=== PATIENT | male | born 1950 | race Caucasian/White ===

== ENCOUNTER 2016-11-04 17:06 | Inpatient (IN) | payer MEDICARE ==
--- NOTE | 2016-11-04 17:36 | Emergency Department Record ---
History of Present Illness - General Chief complaint: Extremity Problem Stated complaint: CELLULITIS ON RT LEG Time Seen by Provider: 11/04/16 17:24 Source: Patient Mode of Arrival: Ambulatory Limitations: No limitations - History of Present Illness Initial comments: The patient is here due to a one day hx of R lower leg pain and a low grade temp of 100.5. The patient has a hx of R leg cellulitis and now feels like he has it again. He denies any trauma, injury, CP, SOB, or cough. The patient does have a hx of a kidney transplant and is on Prograff along with other anti- rejection medicines. MD Complaint: Extremity pain Onset/Timin -: Days(s) Location: Right, Lower Leg History of Same: Yes Consistency: Constant Improves with: Nothing Worsens with: Nothing Associated Symptoms: Denies other symptoms - Related Data Home Medications Medication Instructions Recorded Confirmed Last Taken Aspirin [Ecotrin] 81 mg PO BID 05/24/15 11/04/16 07/19/16 Cholecalciferol (Vitamin D3) 50,000 unit PO Q30D 05/24/15 11/04/16 07/19/16 [Vitamin D3] Multivitamin [Multi-Vitamin Daily] 1 each PO DAILY 05/24/15 11/04/16 07/19/16 Mycophenolate Mofetil 1,000 mg PO BID 05/24/15 11/04/16 07/19/16 Prednisolone [Millipred] 5 mg PO QPM 05/24/15 11/04/16 07/19/16 Tacrolimus [Prograf] 2 mg PO DAILY 05/24/15 11/04/16 07/19/16 Vitamin B Complex [Stress B] 1 each PO DAILY 05/24/15 11/04/16 07/19/16 Vitamin E (Dl,Tocopheryl Acet) 400 unit PO DAILY 05/24/15 11/04/16 07/19/16 [Vitamin E] Enalapril Maleate [Vasotec] 2.5 mg PO DAILY 12/14/15 11/04/16 07/19/16 Tacrolimus [Prograf] 0.5 mg PO QHS 12/14/15 11/04/16 07/19/16 Tacrolimus [Prograf] 1 mg PO QHS 12/14/15 11/04/16 07/19/16 Previous Rx's Medication Instructions Recorded Sulfamethoxazole/Trimethoprim 1 each PO BID #20 tab 12/16/15 [Bactrim] Allergies Allergy/AdvReac Type Severity Reaction Status Date / Time Penicillins [PENICILLINS] Allergy Unknown RASH Verified 07/19/16 15:01 iodine Allergy NAUSEA AND Verified 07/19/16 15:01 VOMITING venom-honey bee Allergy ANAPHYLAXIS Verified 07/19/16 15:01 [bee venom (honey bee)] Travel Screening - Travel/Exposure Within Last 30 Days Have you traveled within the last 30 days?: No Review of Systems Constitutional: Reports: Chills, Fever, Malaise Eyes: Denies: Eye discharge ENT: Denies: Congestion Respiratory: Denies: Cough, Dyspnea Cardiovascular: Denies: Arrhythmia, Chest pain Past Medical History - SOCIAL HISTORY Smoking Status: Never smoker Alcohol Use: None Drug Use: None - RESPIRATORY Hx Respiratory Disorders: Yes Comment:: sarcoidosis - CARDIOVASCULAR Hx Cardio Disorders: Yes Hx Hypertension: Yes - NEURO Hx Neuro Disorders: Yes Hx Neuropathy: Yes (through dialysis) - GI Hx GI Disorders: No Comment:: gluten and lactose free diet - Hx Genitourinary Disorders: Yes Hx Renal Disease: Yes - ENDOCRINE Hx Endocrine Disorders: No - MUSCULOSKELETAL Hx Musculoskeletal Disorders: Yes Hx Gout: Yes - PSYCH Hx Psych Problems: No - HEMATOLOGY/ONCOLOGY Hx Hematology/Oncology Disorders: No Family Medical History Any Significant Family History?: Yes Hx Dementia: Father, Mother, Grandparents *Dementia Comment: prostate, colon Physical Exam - General General Appearance: Alert, Oriented x3, Cooperative, No acute distress - Head Head exam: Atraumatic, Normocephalic, Normal inspection - Eye Eye exam: Normal appearance, PERRL - Neck Neck exam: Normal inspection, Full ROM. negative: Tenderness - Respiratory Respiratory exam: Normal lung sounds bilaterally. negative: Respiratory distress - Cardiovascular Cardiovascular Exam: Regular rate, Normal rhythm, Normal heart sounds - GI/Abdominal GI/Abdominal exam: Soft, Normal bowel sounds. negative: Tenderness - Extremities Extremities exam: Tenderness (There is warmth and mild erythema to the anterior R lower leg.). negative: Normal inspection - Neurological Neurological exam: Alert. negative: Motor sensory deficit Course Vital Signs 11/04/16 17:27 Temperature 98.3 F Pulse Rate 111 H Respiratory 16 Rate Blood Pressure 118/54 Pulse Ox 97 - Reevaluation(s) Reevaluation #1: The patient is doing well. He denies any new issues. I did discuss the issues with the patient and did recommend hospital admission and the patient agrees. I then did discuss the issues with Dr. Ponce and he accepts the admission. 11/04/16 18:33 Medical Decision Making - Data Complexity MDM Data: Labs Ordered and/or Reviewed - Lab Data Result diagrams: 11/04/16 18:00 11/04/16 18:00 Disposition Disposition: Admit Clinical Impression: Cellulitis of right lower extremity Disposition: Still a Patient at [facility] Decision to Admit: Admit from ER Decision to Admit Date: 11/04/16 Decision to Admit Time: 18:38 Accepting Physician: Rosario Time Discussed w/Accepting Physician: 18:38 Condition: (2) Stable Forms: Patient Portal Access Time of Disposition: 18:38
[2016-11-04] MEDS ORDERED: ACETAMINOPHEN 325 MG TAB PO ONE (17:44)
[2016-11-04 18:15] LABS: HEMATOCRIT 39.3 % (42.0-52.0); HEMOGLOBIN 12.1 gm/dl (14.0-18.0); MEAN CELL VOLUME 90.6 fl (81-97); MEAN CORPUSCULAR HGB CONC 30.8 g/dl (32-36); PLATELET COUNT 227 K/uL (130-400); RED BLOOD COUNT 4.34 M/uL (4.40-5.70); RED CELL DISTRIBUTION WIDTH 14.6 % (11.5-14.5); WHITE BLOOD COUNT W/O DIFF 15.1 K/uL (4.2-12.2)
[2016-11-04] MEDS ORDERED: CEFTRIAXONE SODIUM 1 GM in 0.9 % SODIUM CHLORIDE 100ML 100 ML IVPB ONE (18:16)
[2016-11-04 18:18] LABS: MEAN CORPUSCULAR HEMOGLOBIN 27.8 pg (27-33)
[2016-11-04 18:24] LABS: PLATELET ESTIMATE NORMAL (NORMAL)
[2016-11-04 18:36] LABS: ANION GAP 7.6 (7-16); BLOOD UREA NITROGEN 15 mg/dL (9-20); CARBON DIOXIDE 25.4 mmol/L (22-30); CREATININE 1.1 mg/dL (0.66-1.25); EST GLOMERULAR FILTRATION RATE > 60 ml/min; GLUCOSE,RANDOM 107 mg/dL (70-110)
[2016-11-04] MEDS ORDERED: CEFTRIAXONE SODIUM 1 GM in 0.9 % SODIUM CHLORIDE 100ML 100 ML IVPB SCH (19:39)
[2016-11-04] MEDS ORDERED: FUROSEMIDE 20 MG TABLET PO SCH (19:39)
[2016-11-04] MEDS: TMP/SMZ 160MG/800MG TAB PO SCH (21:19)
[2016-11-04] MEDS ORDERED: PATIENT OWN MED: PO SCH ×3 (22:00)
[2016-11-04] MEDS ORDERED: ASPIRIN 81 MG TABEC PO SCH (22:00)
[2016-11-05] MEDS ORDERED: ACETAMINOPHEN 325 MG TAB PO PRN (08:08)
[2016-11-05] MEDS: CEFTRIAXONE SODIUM 1 GM in 0.9 % SODIUM CHLORIDE 100ML 100 ML IVPB SCH ×2 (09:07→21:16)
[2016-11-05] MEDS: PATIENT OWN MED: ASPIRIN 81 MG PO SCH ×2 (09:18→21:13)
[2016-11-05] MEDS: MYCOPHENOLATE 500 MG PO SCH ×2 (09:19→21:17)
[2016-11-05] MEDS: ENALAPRIL 5 MG PO SCH ×2 (09:19→21:17)
[2016-11-05] MEDS: TACROLIMUS 1 MG PO SCH (09:19)
[2016-11-05] MEDS: TMP/SMZ 160MG/800MG TAB PO SCH ×2 (09:20→21:12)
[2016-11-05] MEDS: VITAMIN B COMPLEX PO SCH ×2 (09:21)
[2016-11-05] MEDS: PATIENT OWN MED: PREDNISONE 5 MG PO SCH (09:21)
[2016-11-05] MEDS: PATIENT OWN MED: MULTIVITAMIN PO SCH (09:21)
[2016-11-05] MEDS: FUROSEMIDE 20 MG TABLET PO SCH (09:30)
--- NOTE | 2016-11-05 12:31 | History and Physical Report ---
DATE OF ADMISSION: 11/04/2016 CHIEF COMPLAINT AND HISTORY OF CHIEF COMPLAINT: Redness, swelling, and pain of the right lower leg. HISTORY OF PRESENT ILLNESS: This 66-year-old male states that today the leg became red, swollen and painful. He developed a fever. He came into the emergency department for evaluations; evaluated by Dr. Joseph, admitted to the hospital with cellulitis of the right leg. He has a chronic foot ulcer on the right foot, seeing Dr. Watters weekly for that. The patient has a history of a renal transplant. We will start him on IV Rocephin and oral Bactrim. His radio sportscaster in [place] is Dr. Mcclure and he sees [facility] nephrology people for his transplant. I am his primary doctor. PAST MEDICAL HISTORY: Hypertension. He has chronic nephritis, benign prostatic hyperplasia, and renal transplant in 2011. He does not have diabetes. PAST SURGICAL HISTORY: Kidney transplant 5 years ago 2011. He has multiple right foot surgeries because of an ulcer that is not healing. He was on dialysis in the past. SOCIAL HISTORY: No alcohol. He never smoked. CURRENT MEDICATIONS: 1. CellCept 1000 mg b.i.d. 2. Vasotec 2.5 b.i.d. 3. Vitamin D 50,000 units every 2 weeks. 4. Prograf 2 mg in the morning, 1 mg at night. 5. Vitamin E 400 units daily. 6. B complex 1 daily. 7. Millipred 5 mg at h.s. 8. Mofetil 1000 mg b.i.d. 9. Multivitamins daily, 1 a day. 10. Aspirin 81 mg b.i.d. ALLERGIES: PENICILLIN, IODINE, AND BEES. SOCIAL HISTORY: No alcohol or cigarette use. FAMILY HISTORY: No significant family medical history. REVIEW OF SYSTEMS: HEENT: No upper respiratory infection symptoms, cough, cold, or congestion. CARDIOVASCULAR: No chest pain, palpitation, arrhythmias. RESPIRATORY: No cough, cold, or congestion. GASTROINTESTINAL: No nausea, vomiting, diarrhea, black stools, or bloody stools. GENITOURINARY: No dysuria, hematuria, frequency, or burning on urination. MUSCULOSKELETAL: No joint or bone abnormalities. NEUROLOGIC: No CVA, paralysis, or paresthesias. ENDOCRINE: No diabetes or thyroid disease. INTEGUMENT: No rash, ulcerative change, or yellow skin. See chief complaint. Skin is red, the right lower leg swollen and painful to touch, cellulitis-type rash. PHYSICAL EXAMINATION: GENERAL: Height is 6 feet. His weight is documented at 300 pounds. VITAL SIGNS: Temperature is 98.7, pulse is 90, blood pressure is 116/61, respiratory rate is 20. HEENT: Pupils are equal, round, and reactive to light and accomodation. Extraocular muscles intact. Throat is clear. Nose is clear. Tympanic membranes are gaytan. NECK: Supple, no JVD, distention, hepatojugular reflux, no carotid bruits, thyroid is . CARDIOVASCULAR: Regular rate and rhythm without murmurs, clicks, rubs, or gallops. RESPIRATORY: Clear to auscultation and percussion. ABDOMEN: Soft, nontender, no hepatosplenomegaly, no mass, no tenderness. Bowel sounds are active, no bruits. EXTREMITIES: See chief complaint. He has redness of the right lower leg, swelling, and pain. There is an ulcer on the right foot, no cyanosis, no clubbing, full range of motion. BREASTS: Normal male breasts. RECTAL: Deferred. GENITALIA: Deferred. NEUROLOGIC: Cranial nerves II through XII intact. No gross defect, sensation normal, strength normal. Deep tendon reflexes are equal bilaterally. Babinski negative. MENTAL STATUS: Alert and oriented x3. IMPRESSION: 1. Cellulitis of the right lowr leg. 2. Chronic ulcer of the right foot status post kidney transplants 2011 [facility]. 3. Status post hypertension, status post gout. PLAN: 1. IV Rocephin q.12h. 2. Bactrim double strength b.i.d. 3. Further care as needed. 4. We will discuss the case with the [facility] at [facility] to make sure if we should be stopping his rejection meds or not at this time. DO FELA Spencer
[2016-11-05] MEDS ORDERED: TACROLIMUS 0.5 MG PO SCH (21:00)
[2016-11-05] MEDS ORDERED: TACROLIMUS 1 MG PO SCH (21:00)
[2016-11-06] MEDS: CEFTRIAXONE SODIUM 1 GM in 0.9 % SODIUM CHLORIDE 100ML 100 ML IVPB SCH (08:28)
[2016-11-06] MEDS: PATIENT OWN MED: ASPIRIN 81 MG PO SCH (09:05)
[2016-11-06] MEDS: ENALAPRIL 5 MG PO SCH (09:05)
[2016-11-06] MEDS: MYCOPHENOLATE 500 MG PO SCH (09:05)
[2016-11-06] MEDS: TACROLIMUS 1 MG PO SCH (09:05)
[2016-11-06] MEDS: TMP/SMZ 160MG/800MG TAB PO SCH (09:07)
[2016-11-06] MEDS: FUROSEMIDE 20 MG TABLET PO SCH (09:07)
[2016-11-06] MEDS: VITAMIN B COMPLEX PO SCH ×2 (11:06→11:07)
[2016-11-06] MEDS: PATIENT OWN MED: PREDNISONE 5 MG PO SCH (11:06)
[2016-11-06] MEDS: PATIENT OWN MED: MULTIVITAMIN PO SCH (11:06)
--- NOTE | 2016-11-06 13:12 | Discharge Note ---
VTE H&P Assessment - Risk for VTE Risk for VTE: Yes Risk Level: Moderate Risk Assessment Date: 11/05/16 Risk Assessment Time: 08:00 VTE Orders Placed or Will Be Placed: Yes Discharge Medications - Discharge Medications Home Medications: Ambulatory Orders Aspirin [Ecotrin] 81 mg PO BID 05/24/15 [Last Taken 07/19/16] Cholecalciferol (Vitamin D3) [Vitamin D3] 50,000 unit PO Q15D 05/24/15 [Last Taken 07/19/16] Multivitamin [Multi-Vitamin Daily] 1 each PO DAILY 05/24/15 [Last Taken 07/19/16 ] Prednisolone [Millipred] 5 mg PO QPM 05/24/15 [Last Taken 07/19/16] Tacrolimus [Prograf] 2 mg PO DAILY 05/24/15 [Last Taken 07/19/16] Vitamin B Complex [Stress B] 1 each PO DAILY 05/24/15 [Last Taken 07/19/16] Vitamin E (Dl,Tocopheryl Acet) [Vitamin E] 400 unit PO DAILY 05/24/15 [Last Taken 07/19/16] Enalapril Maleate [Vasotec] 2.5 mg PO BID 12/14/15 [Last Taken 07/19/16] Tacrolimus [Prograf] 1.5 mg PO QHS 12/14/15 [Last Taken 07/19/16] Mycophenolate Mofetil [Cellcept] 1,000 mg PO BID 11/04/16 [Last Taken Unknown] Cephalexin [Keflex] 500 mg PO QID #40 cap 11/06/16 [Last Taken Unknown] Sulfamethoxazole/Trimethoprim [Bactrim] 1 each PO BID #20 tab 11/06/16 [Last Taken Unknown] Discharge Note - Date Date of Discharge Note: 11/06/16 Disposition: Home, Self-Care Condition: (2) Stable Instructions: Cellulitis (DC) Additional Instructions: follow up with dr. Ponce on thursday Prescriptions: Sulfamethoxazole/Trimethoprim [Bactrim] 1 each PO BID #20 tab Cephalexin [Keflex] 500 mg PO QID #40 cap Referrals: Aron Ponce D.O. [Primary Care Provider] - Forms: Patient Portal Access
== END 2016-11-06 14:35 | disposition home or self-care (01) | DRG 603 ==
LOC: ER 17:06 → MEDSURG 19:13
PROVIDERS: ADMIT Emergency Medicine; ATTEND Emergency Medicine
DX: L03.115 Cellulitis of right lower limb (principal); Z94.0 Kidney transplant status; N03.9 Chronic nephritic syndrome with unspecified morphologic changes; I10 Essential (primary) hypertension; N40.0 Benign prostatic hyperplasia without lower urinary tract symptoms; L97.519 Non-pressure chronic ulcer of other part of right foot with unspecified severity
CPT/HCPCS: 80048; 85027; 86140; 96374; 99223; 99233; 99239; 99285

== ENCOUNTER 2017-06-05 21:41 | Emergency (ER) | payer MEDICARE ==
[2017-06-05] MEDS ORDERED: 0.9 % SODIUM CHLORIDE 1000ML 1,000 ML IV ONE (21:50)
--- NOTE | 2017-06-05 21:56 | Emergency Department Record ---
History of Present Illness - General Chief complaint: Male Urogenital Problem Stated complaint: UTI Time Seen by Provider: 06/05/17 21:43 Source: Patient, Family Mode of Arrival: Ambulatory Limitations: No limitations - History of Present Illness Initial comments: 67 yo male presents with urinary frequency and fever. His urinary symptoms started about 3 days ago and the fever yesterday. He reports that he had a renal transplant 5 years ago. Recently he had fevers of unknown cause. It was discovered that he had a stone in his transplanted kidney. He was treated at [facility] where his transplant occurred. He was treated with antibiotics and a ureteral stent as well and a nephrostomy tube. He reports the stone was treated with lithotripsy on multiple occasions. The stent was removed about 10 days ago. He finished Cipro a few days ago. His TMax was 101 today. He reports that the last stone was painless as it was in the transplanted kidney. The patient took Tylenol prior to arrival. He had chronic unchanged right foot drainage from a long standing foot ulcer that is unchanged. No cough. PCP is Dr Ponce in [place] MD Complaint: Dysuria, Other (Fevers) -: Hour(s) Severity: Mild Consistency: Constant Improves with: None Worsens with: None Other Reports: Other (tired, fatique) - Related Data Home Medications Medication Instructions Recorded Confirmed Last Taken Tamsulosin HCl [Flomax] 0.4 mg PO DAILY 06/05/17 06/05/17 Unknown Allergies Allergy/AdvReac Type Severity Reaction Status Date / Time Penicillins [PENICILLINS] Allergy Unknown RASH Verified 07/19/16 15:01 Iodinated Contrast- Oral and Allergy PT UNSURE Verified 06/05/17 21:54 IV Dye OF REACTION iodine Allergy NAUSEA AND Verified 07/19/16 15:01 VOMITING venom-honey bee Allergy ANAPHYLAXIS Verified 07/19/16 15:01 [bee venom (honey bee)] Review of Systems Constitutional: Reports: Chills, Fever, Malaise, Weakness Eyes: Denies: Eye discharge, Eye pain, Photophobia, Vision change ENT: Denies: Congestion, Throat pain Respiratory: Denies: Cough, Dyspnea, Hemoptysis, Stridor, Wheezes Cardiovascular: Denies: Chest pain, Palpitations, Syncope Endocrine: Reports: Fatigue. Denies: Polydipsia, Polyuria Gastrointestinal: Denies: Abdominal pain, Constipation, Diarrhea, Hematemesis, Hematochezia, Nausea, Vomiting Genitourinary: Reports: Dysuria, Frequency, Urgency. Denies: Hematuria Musculoskeletal: Denies: Arthralgia, Back pain, Joint swelling, Myalgia Skin: Denies: Bruising, Change in color, Rash Neurological: Denies: Confusion, Headache, Numbness, Tingling, Tremors, Vertigo , Weakness Psychiatric: Denies: Anxiety Hematological/Lymphatic: Denies: Blood Clots, Easy bleeding, Easy bruising, Swollen glands Past Medical History - SOCIAL HISTORY Smoking Status: Never smoker - RESPIRATORY Hx Respiratory Disorders: Yes Comment:: sarcoidosis - CARDIOVASCULAR Hx Cardio Disorders: Yes Hx Hypertension: Yes - NEURO Comment:: Charcot Shari Tooth - GI Hx GI Disorders: No Comment:: gluten and lactose free diet - Comment:: kidney transplant 09/2011 - ENDOCRINE Hx Endocrine Disorders: No - MUSCULOSKELETAL Hx Musculoskeletal Disorders: Yes - PSYCH Hx Psych Problems: No - HEMATOLOGY/ONCOLOGY Hx Hematology/Oncology Disorders: No Family Medical History Hx Dementia: Father, Mother, Grandparents *Dementia Comment: prostate, colon Physical Exam - General General Appearance: Alert, Oriented x3, Cooperative, No acute distress Limitations: No limitations - Head Head exam: Atraumatic, Normocephalic, Normal inspection - Eye Eye exam: Normal appearance, PERRL. negative: Conjunctival injection, Scleral icterus - ENT ENT exam: Normal exam, Mucous membranes moist Ear exam: Normal external inspection Nasal Exam: Normal inspection Mouth exam: Normal external inspection - Neck Neck exam: Normal inspection, Full ROM. negative: Tenderness - Respiratory Respiratory exam: Normal lung sounds bilaterally. negative: Decreased breath sounds, Respiratory distress, Rhonchi, Stridor, Wheezes - Cardiovascular Cardiovascular Exam: Regular rate, Normal rhythm, Normal heart sounds Peripheral Pulses: 2+: Radial (R), Radial (L) - GI/Abdominal GI/Abdominal exam: Soft. negative: Tenderness - Rectal Rectal exam: Deferred - exam: Normal inspection, Other (no erythema or irritation). negative: Scrotal swelling - Extremities Extremities exam: Other (chronic charcot joint deformity) - Back Back exam: Denies: CVA tenderness (R), CVA tenderness (L) - Neurological Neurological exam: Alert, Oriented X3 - Psychiatric Psychiatric exam: Normal affect, Normal mood. negative: Agitated, Anxious - Skin Skin exam: Dry, Intact, Normal color, Warm Course - Reevaluation(s) Reevaluation #1: The labs were reviewed The CBC demonstrated a WBC of 10 with Hgb of 10 the CR is 1.1 with a BUN of 16 The Lactic Acid is 1.3 The UA demonstrates Nitrite Positive, LE Positive with 16-20 WBC's, and +2 bacteria. CRP is elevated at 1.3 06/05/17 22:39 06/05/17 22:[address] was reviewed with the radiologist. The [place] kidneys are atrophic. The transplanted kidney has a mild haziness, mild hydronephrosis, and a thickened hazy bladder. No stone identified on the CT scan. The patient and his was notified of the results of UTI and stronger possible pyelonephritis in the transplanted kidney. No stones The patient is currently having some chills. The [facility] transplant service recreation attendant supervisor will be called. 06/05/17 23:[address] Gardner of the [facility] ED He accepts the patient for transfer He recommended Cefipime based on the antibiotics available at [facility] and his most recent cultures. The culture were resistant to Rocephin on the most recent [facility] cultures. I explained to the and patient I recommend admission with his possible pyelonephritis, renal transplant, and known resistant recent infections There are no nephrologists, urologists, or ID available at [facility] 06/05/17 23:14 06/05/17 23:23 The patient and agree with the plan as well as transfer by EMS at this time to the [facility]. Medical Decision Making - Lab Data Result diagrams: 06/05/17 22:00 06/05/17 22:00 Disposition Disposition: Transfer Clinical Impression: Renal transplant recipient, Pyelonephritis Urinary tract infection Qualifiers: Urinary tract infection type: site unspecified Hematuria presence: without hematuria Qualified Code(s): N39.0 - Urinary tract infection, site not specified Disposition: Acute Care Hospital Transfer Transfer To: [facility] Reason For Transfer: Renal Transplant consultation Accepting Physician: Dr Gardner Time Discussed w/Accepting Physician: 23:08 Condition: (2) Stable Forms: Patient Portal Access Time of Disposition: 23:03 Quality - Quality Measures Quality Measures: N/A - Blood Pressure Screening Does Patient Have Any of the Following: No Blood Pressure Classification: Normal BP Reading Systolic Measurement: 110 Diastolic Measurement: 68 Screening for High Blood Pressure: < Normal BP, F/U Not Required > [G9996]
[2017-06-05 22:12] LABS: HEMATOCRIT 35.3 % (42.0-52.0); HEMOGLOBIN 10.8 gm/dl (14.0-18.0); MEAN CELL VOLUME 89.6 fl (81-97); MEAN CORPUSCULAR HEMOGLOBIN 27.4 pg (27-33); MEAN CORPUSCULAR HGB CONC 30.6 g/dl (32-36); MEAN PLATELET VOLUME 9.4 fl (7.4-10.4); PLATELET COUNT 217 K/uL (130-400); RED BLOOD COUNT 3.94 M/uL (4.40-5.70); RED CELL DISTRIBUTION WIDTH 15.1 % (11.5-14.5); WHITE BLOOD COUNT W/O DIFF 10.7 K/uL (4.2-12.2)
[2017-06-05 22:22] LABS: URINE APPEARANCE CLEAR; URINE BILIRUBIN NEGATIVE (NEGATIVE); URINE BLOOD SMALL (NEGATIVE); URINE COLOR YELLOW; URINE GLUCOSE (UA) NEGATIVE (NEGATIVE); URINE KETONE NEGATIVE (NEGATIVE); URINE LEUKOCYTE ESTERASE MODERATE (NEGATIVE); URINE NITRITE POSITIVE (NEGATIVE); URINE PROTEIN NEGATIVE (NEGATIVE); URINE UROBILINOGEN 0.2 E.U./dL (0.20 - 1.00)
[2017-06-05 22:27] LABS: INR 1.11; PARTIAL THROMBOPLASTIN TIME 27.9 SECONDS (24.5-39.1)
[2017-06-05 22:33] LABS: ALB/GLOB RATIO 1.2 (1.1-1.8); ALBUMIN 3.6 g/dL (4.0-5.0); ALKALINE PHOSPHATASE 68 U/L (40-129); ALT/SGPT 7 U/L (<41); AST/SGOT 9 U/L (10.0-50.0); BLOOD UREA NITROGEN 16 mg/dL (8-23); CREATININE 1.1 mg/dL (0.7-1.2); EST GLOMERULAR FILTRATION RATE > 60 mL/min; GLUCOSE,RANDOM 111 mg/dL (74-109); TOTAL PROTEIN 6.7 g/dL (6.6-8.7)
[2017-06-05 22:35] LABS: PLATELET ESTIMATE NORMAL (NORMAL); URINE RBC 0 - 2 (NONE SEEN); URINE WBC 16 - 20 (0-2/hpf)
[2017-06-05 22:36] LABS: URINE BACTERIA 2+
[2017-06-05] MEDS ORDERED: CEFTRIAXONE SODIUM 1 GM in 0.9 % SODIUM CHLORIDE 100ML 100 ML IVPB ONE (22:44)
[2017-06-05] MEDS ORDERED: CEFEPIME HCL 2 GM in 0.9 % SODIUM CHLORIDE 100ML 100 ML IVPB ONE (23:12)
--- NOTE | 2017-06-07 13:43 | CT SCAN REPORT ---
EXAM: CT SCAN ABDOMEN/PELVIS WO CONTRAST HISTORY: KIDNEY TRANSPLANT FIVE YEARS AGO. TEMPERATURE TODAY. FREQUENT URINATION, HAD INFECTED KIDNEY STONE SIX WEEKS AGO. TECHNIQUE: Axial CT scan of the abdomen and pelvis performed without oral or IV contrast. COMPARISON: CT abdomen and pelvis 07/18/16. FINDINGS: Cholelithiasis again noted. No additional findings to suggest acute cholecystitis currently. There are atrophic [place] kidneys bilaterally as before. No hydronephrosis evident. Small low-attenuation mass upper pole left kidney as before, incompletely evaluated without IV contrast but presumably a small cyst with a noncontrast CT density of 8. No hydroureter seen in either [place] kidney with no ureteral calculous in either [place] ureter and with no bladder calculous evident. The transplant kidney is seen in the left iliac fossa. There may be some mild hydronephrosis and also slight dilatation of the transplant ureter. However, no actual ureteral calculous seen. This is nonspecific and could be related to reflux. Some stands of soft tissue density are seen surrounding the left kidney as well, which is nonspecific and can be seen with acute infection or acute obstruction. Mild prostate calcification is present. Evaluation of the bowel and viscera is very limited without oral or IV contrast. Given this limitation, no definite hepatic, splenic, adrenal, or pancreatic mass identified. Mild diverticulosis left side of the colon but no definite diverticulitis. No appendicitis evident. No free intraperitoneal air or free intraperitoneal fluid evident. Very small periumbilical anterior abdominal wall hernia containing adipose tissue but no bowel. Degenerative disc disease in the thoracic and lumbar spine with some prominent spurring in the visualized thoracic spine. The urinary bladder has a mildly thick-walled appearance with slight haziness surrounding the urinary bladder as well, which could represent cystitis. Correlation with urinalysis suggested. The previously seen right rectus sheath hematoma has resolved since 07/18/16. IMPRESSION: 1. VERY ATROPHIC NEWHALEN KIDNEYS BEFORE WITH NO HYDRONEPHROSIS, HYDROURETER, OR URINARY TRACT CALCULOUS INVOLVING THE NEWHALEN KIDNEYS OR URETERS. 2. TRANSPLANT KIDNEY LEFT ILIAC FOSSA. THERE IS PROBABLE MILD HYDRONEPHROSIS AND HYDROURETER INVOLVING THE TRANSPLANT KIDNEY AND URETER BUT NO OBSTRUCTING CALCULOUS EVIDENT. HAZY DENSITY SURROUNDING THE TRANSPLANT KIDNEY MAY BE RELATED TO INFECTION OR OBSTRUCTION. SLIGHT THICKENING OF THE BLADDER WALL WITH SLIGHT HAZINESS AROUND THE BLADDER WELL MAY ALSO BE RELATED TO CYSTITIS. URINALYSIS SUGGESTED. 3. CHOLELITHIASIS BEFORE. NO ADDITIONAL FINDINGS TO SUGGEST ACUTE CHOLECYSTITIS. 4. PREVIOUSLY SEEN RIGHT RECTAL SHEATH HEMATOMA HAS RESOLVED. 5. MULTILEVEL DEGENERATIVE CHANGE IN THE SPINE. 6. PROBABLE SMALL UPPER POLE LEFT RENAL CYST, ALSO PRESENT PREVIOUSLY. JOB NUMBER: [id number] MTDD
== END 2017-06-05 23:53 | disposition short-term general hospital (02) ==
LOC: ER 21:41
DX: N10 Acute pyelonephritis (principal); R50.81 Fever presenting with conditions classified elsewhere; N39.0 Urinary tract infection, site not specified; R53.83 Other fatigue; Z94.0 Kidney transplant status
CPT/HCPCS: 74176; 80053; 81001; 83605; 85027; 85610; 85730; 86140; 96374; 96375; 99285; J7030

== ENCOUNTER 2018-07-02 07:56 | Day surgery (SDC) | payer MEDICARE ==
[2018-07-02] MEDS ORDERED: LIDOCAINE 2% MDV (20MG/ML) 20ML VIAL IV ONE (07:57)
[2018-07-02] MEDS ORDERED: PROPOFOL 10 MG/ML VIAL IV ONE (07:57)
--- NOTE | 2018-07-05 09:40 | Operative Note ---
DATE OF SURGERY: 07/02/18 SURGEON: Joann Murdock MD OPERATION: COLONOSCOPY. INDICATIONS: This is a 68-year-old male with history of post kidney transplant on antirejection medications who presented for screening colonoscopy. POSTOPERATIVE DIAGNOSES: 1. Left-sided colonic diverticulosis. 2. Otherwise normal colon. ANESTHESIA: Sedation is per Anesthesia. Pulse oximetry was monitored throughout the procedure to maintain O2 saturation of 90% or greater. Supplemental oxygen was administered via nasal cannula. Cardiac and vital signs were monitored throughout the duration of the procedure, and they were stable. The procedure of colonoscopy and risks and alternatives of the procedure, including the risk of bleeding and perforation, among others, were explained to the patient who voiced understanding and agreed to have the procedure done. Physical examination was performed, and the patient was found stable for sedation. PROCEDURE: The patient was placed in the left lateral position. Sedation was initiated. A digital rectal exam was performed and showed some mild external hemorrhoids with no palpable rectal masses. An Olympus PCF-180AL colonoscope was then inserted into the rectum under direct visualization. It was advanced to the cecum without difficulty. The ileocecal valve and appendiceal orifice were identified and photographed. The colonic mucosa was carefully examined upon introduction of the colonoscope. There were scattered diverticula noted in the sigmoid and descending colon. There were no other lesions noted. The ileocecal valve was intubated and terminal ileal mucosa was inspected for about 10 cm and it appeared normal. The colonoscope was then withdrawn while carefully examining the colonic mucosal surfaces. No other lesions were noted. In the rectum, retroflexion was performed and grade 1 internal hemorrhoids were noted. The colonoscope was then withdrawn and the procedure was terminated. The patient tolerated the procedure well without any immediate complications. The patient remained with stable vital signs and was transferred to the recovery room. RECOMMENDATIONS: 1. The patient should be on a high-fiber diet. 2. The patient is to have a repeat colonoscopy for screening in 2 years given his post-transplant status. Thank you for allowing me to participate in the care of your patient. CC: DO FELA Spencer
== END 2018-07-02 08:52 | disposition home or self-care (01) ==
LOC: HOP 07:56
PROVIDERS: ATTEND Internal Medicine Gastroenterology
DX: Z12.11 Encounter for screening for malignant neoplasm of colon (principal); Z94.0 Kidney transplant status; K57.30 Diverticulosis of large intestine without perforation or abscess without bleeding; I10 Essential (primary) hypertension
CPT/HCPCS: 00812; G0121

== ENCOUNTER 2019-04-21 12:39 | Emergency (ER) | payer MEDICARE ==
--- NOTE | 2019-04-21 13:23 | Emergency Department Record ---
History of Present Illness - General Chief Complaint: Fever Stated Complaint: STOMACHE PROBLEMS Time Seen by Provider: 04/21/19 12:48 Source: Patient Mode of Arrival: Wheelchair Limitations: No limitations - History of Present Illness Initial Comments: The patient is here due to not feeling well for 2 weeks with body aches all over and a low grade fever. Last evening the patient's temp did reach 100.3 which is the highest it has been. He denies any symptoms of a cellulitis, UTI or any rashes or back pain. He also has had no AP, nausea, vomiting, diarrhea, dysuria, or JULIAN but he has had a cough for about 2 weeks and now it is breaking up. The patient does have a hx of a renal transplant and is on Immunosuppressive medications. MD Complaint: Malaise Onset/Timin -: Week(s) Context: On immunosuppressant(s) Associated Symptoms: Myalgias Treatments Prior to Arrival: Acetaminophen Treatment Prior to Arrival Comment:: Half a Tylenol last PM - Related Data Previous Rx's Medication Instructions Recorded Doxycycline Monohydrate [Mondoxyne 100 mg PO BID 7 Days #14 capsule 04/21/19 Nl] Allergies Allergy/AdvReac Type Severity Reaction Status Date / Time Penicillins [PENICILLINS] Allergy Unknown RASH Verified 04/21/19 12:54 Iodinated Contrast Media Allergy PT UNSURE Verified 04/21/19 12:54 [Iodinated Contrast- Oral OF REACTION and IV Dye] iodine Allergy NAUSEA AND Verified 04/21/19 12:54 VOMITING venom-honey bee Allergy ANAPHYLAXIS Verified 04/21/19 12:54 [bee venom (honey bee)] Travel Screening - Travel/Exposure Within Last 30 Days Have you traveled within the last 30 days?: No - Travel/Exposure Within Last Year Have you traveled outside the [place] in the last year?: No - Additonal Travel Details Have you been exposed to anyone with a communicable illness?: No - Travel Symptoms Symptom Screening: None Review of Systems Constitutional: Reports: Malaise. Denies: Chills, Fever Eyes: Denies: Eye discharge ENT: Denies: Congestion Respiratory: Reports: Cough. Denies: Dyspnea Cardiovascular: Denies: Chest pain Endocrine: Reports: Fatigue Gastrointestinal: Denies: Diarrhea, Vomiting Genitourinary: Denies: Frequency Musculoskeletal: Denies: Arthralgia Skin: Denies: Bruising Past Medical History - SOCIAL HISTORY Smoking Status: Never smoker Alcohol Use: None Drug Use: None - RESPIRATORY Hx Respiratory Disorders: Yes Comment:: sarcoidosis - CARDIOVASCULAR Hx Cardio Disorders: Yes Hx Hypertension: Yes - NEURO Hx Neuro Disorders: Yes Comment:: Charcot Shari Tooth - GI Hx GI Disorders: No Comment:: gluten and lactose free diet - Hx Genitourinary Disorders: Yes Hx Dialysis: Yes Hx Renal Disease: Yes - ENDOCRINE Hx Endocrine Disorders: No Hx Thyroid Disease: Yes (low thyroid - on vit d for this per pt.) - MUSCULOSKELETAL Hx Musculoskeletal Disorders: Yes Hx Gout: Yes Comment:: an, fell in parking lot on left knee - PSYCH Hx Psych Problems: No - HEMATOLOGY/ONCOLOGY Hx Hematology/Oncology Disorders: No Hx Bruising: Yes (r/t meds) Family Medical History Any Significant Family History?: Yes Hx Cancer: Father, Mother, Grandparents *Cancer Comment: Prostat, colon Physical Exam - General General Appearance: Alert, Oriented x3, Cooperative, No acute distress - Head Head exam: Atraumatic, Normocephalic, Normal inspection - Eye Eye exam: Normal appearance, PERRL - ENT Throat exam: Normal inspection. negative: Tonsillar erythema, Tonsillar exudate - Neck Neck exam: Normal inspection, Full ROM. negative: Tenderness - Respiratory Respiratory exam: Normal lung sounds bilaterally. negative: Respiratory distres s - Cardiovascular Cardiovascular Exam: Regular rate, Normal rhythm, Normal heart sounds - GI/Abdominal GI/Abdominal exam: Soft, Normal bowel sounds. negative: Tenderness - Extremities Extremities exam: Normal capillary refill. negative: Normal inspection (There are chronic changes to the R lower extremity. ), Full ROM, Tenderness Course Vital Signs 04/21/19 12:54 Temperature 99 F Pulse Rate 87 Respiratory 16 Rate Blood Pressure 141/72 Pulse Ox 96 - Reevaluation(s) Reevaluation #1: The patient is doing very well at this time. His repeat temp is 98.8 and he d enies any new problems. I did discuss the normal lab tests with the patient and the xray that does not demonstrate any lobar pneumonia. Due to the persistent cough we will place the patient on Doxycycline. He is to F/U with his transplant doctors tomorrow and return to the ER for any worsening symptoms. 04/21/19 14:58 Reevaluation #2: I did offer to call the patient's transplant team at [facility] but the patient declined and said he would do it. 04/21/19 14:59 Reevaluation #3: I did speak with Dr. Kiran who is quality control scientist for the kidney transplant team at [facility] and he does agree with the plan. 04/21/19 15:30 Medical Decision Making - Data Complexity MDM Data: Labs Ordered and/or Reviewed, X-Ray Ordered and/or Reviewed - Lab Data Result diagrams: 04/21/19 13:55 04/21/19 13:55 - Radiology Data Radiology results: Report reviewed (CXR: Neg for acute changes. Possible increased interstitial infiltrates vs atypical infection.) Disposition Disposition: Discharge Clinical Impression: URI, acute Disposition: Home, Self-Care Condition: (2) Stable Instructions: Fever in Adults (ED) Additional Instructions: Please drink plenty of fluids and take the Doxycycline as directed. Please call your transplant people tomorrow if not better. Return to the ER for any worsening symptoms. Prescriptions: Doxycycline Monohydrate [Mondoxyne Nl] 100 mg PO BID 7 Days #14 capsule Forms: Patient Portal Access Time of Disposition: 15:01 Quality - Quality Measures Quality Measures: N/A - Blood Pressure Screening View Details: Yes Does Patient Have Any of the Following: Active Dx of HTN Blood Pressure Classification: Hypertensive Reading Systolic Measurement: 141 Diastolic Measurement: 72 Screening for High Blood Pressure: Patient Exclusion, Hx of HTN [[id number]]
[2019-04-21 14:09] LABS: ABSOLUTE NEUTROPHIL COUNT 5.76; HEMATOCRIT 32.2 % (42.0-52.0); MEAN CELL VOLUME 86.8 fl (81-97); MEAN CORPUSCULAR HGB CONC 31.1 g/dl (32-36); MEAN PLATELET VOLUME 8.8 fl (7.4-10.4); PLATELET COUNT 304 K/uL (130-400); RED BLOOD COUNT 3.71 M/uL (4.40-5.70); RED CELL DISTRIBUTION WIDTH 14.3 % (11.5-14.5); WHITE BLOOD COUNT W/O DIFF 6.8 K/uL (4.2-12.2)
[2019-04-21 14:11] LABS: MEAN CORPUSCULAR HEMOGLOBIN 26.9 pg (27-33)
[2019-04-21 14:18] LABS: PLATELET ESTIMATE NORMAL (NORMAL)
[2019-04-21 14:24] LABS: BLOOD UREA NITROGEN 20 mg/dL (8-23); CREATININE 1.1 mg/dL (0.7-1.2); EST GLOMERULAR FILTRATION RATE > 60 mL/min
[2019-04-21 14:26] LABS: GLUCOSE,RANDOM 112 mg/dL (74-109)
[2019-04-21 14:29] LABS: ALBUMIN 3.5 g/dL (4.0-5.0); ALKALINE PHOSPHATASE 72 U/L (40-129); ALT/SGPT 15 U/L (<41); AST/SGOT 15 U/L (10.0-50.0); BILIRUBIN,DIRECT < 0.2 mg/dL (0-0.3); C-REACTIVE PROTEIN 6.15 mg/dL (<0.5)
[2019-04-21 14:37] LABS: URINE APPEARANCE CLEAR; URINE BILIRUBIN NEGATIVE (NEGATIVE); URINE BLOOD NEGATIVE (NEGATIVE); URINE COLOR YELLOW; URINE GLUCOSE (UA) NEGATIVE (NEGATIVE); URINE KETONE NEGATIVE (NEGATIVE); URINE LEUKOCYTE ESTERASE NEGATIVE (NEGATIVE); URINE NITRITE NEGATIVE (NEGATIVE); URINE PROTEIN NEGATIVE (NEGATIVE); URINE UROBILINOGEN 0.2 E.U./dL (0.20 - 1.00)
--- NOTE | 2019-04-25 16:54 | RADIOLOGY REPORT ---
STUDY: Chest 2 views. CLINICAL HISTORY: Cough. Patient not feeling well for a couple of weeks. Fever. kidney transplant history. TECHNIQUE: Upright PA and lateral views of the chest. COMPARISON: Two-view chest radiographic examination dated 07/18/2016. FINDINGS: The heart is not grossly enlarged and no pulmonary venous hypertension is seen. Primarily reticulonodular opacities are noted in the perihilar and basilar portions of the lungs, right greater than left. These are new since the 07/18/2016 examination. Diagnostic considerations include inflammation/infection of small airways (bronchopneumonia), edema, or less likely chronic interstitial change. Tortuous atherosclerotic thoracic aorta. MTDD
== END 2019-04-21 15:43 | disposition home or self-care (01) ==
LOC: ER 12:39
DX: J06.9 Acute upper respiratory infection, unspecified (principal); R50.81 Fever presenting with conditions classified elsewhere; R05 Cough; R53.81 Other malaise; Z94.0 Kidney transplant status
CPT/HCPCS: 71046; 80048; 80076; 81003; 85027; 86140; 99284